=== PATIENT | male | born 1965 | race Two or more races ===

== ENCOUNTER 2025-01-30 02:18 | Inpatient (IN) | payer OTHER ==
[~2025-01-30] VITALS: Ht 165.1 cm; Wt 90.7 kg
[2025-01-30] MEDS ORDERED: NORVASC5 MG PO (02:26)
[2025-01-30] MEDS ORDERED: COZAAR25 MG PO (02:26)
[2025-01-30] MEDS ORDERED: PIPERACILLIN/TAZOBACTAM SODIUM 3.375 GM in DEXTROSE 5 % IN WATER 100 ML IV SCH (03:36)
[2025-01-30] MEDS ORDERED: 0.9 % SODIUM CHLORIDE 1,000 ML IV ONE (03:45)
[2025-01-30 04:32] LABS: INR 1.29
[2025-01-30 04:41] LABS: URINE APPEARANCE Cloudy; URINE BILIRRUBIN Moderate (NEGATIVE); URINE BLOOD Small; URINE COLOR Dark Yellow; URINE GLUCOSE Negative (NEGATIVE); URINE KETONE Trace (NEGATIVE); URINE LEUKOCYTE Trace; URINE NITRATE Negative; URINE PROTEIN 30 (NEGATIVE); URINE UROBILINOGEN 1.0 E.U./dl
[2025-01-30 04:44] LABS: URINE BACTERIA 181.1 uL (0.0-1933); URINE EPITHELIAL CELLS 12.7 uL (0.0-38.8); URINE RBC 265.8 uL (0.0-20.8); URINE WBC 4.7 uL (0.0-23.2)
[2025-01-30 04:47] LABS: BASO % 0.2 % (0.1-1.2); EOS # 0.01 (0.04-0.54); EOS % 0.1 % (0.7-7.0); LYMPH # 0.41 (1.18-3.74); LYMPH % 2.6 % (19.3-53.1); MEAN PLATELET VOLUME 11.20 fl (9.4-12.4); MONO # 0.86 (0.24-0.82); MONO % 5.4 % (4.7-12.5); NEUT # 14.53 (1.56-6.13); NEUT % 90.3 % (34.0-71.1); RED CELL DISTRIBUTION WIDTH 15.6 % (11.6-14.4)
[2025-01-30 04:50] LABS: BAND MAN 11.0 %; LYMPHOCYTE MAN 1.0 %; MONOCYTE MAN 7.0 %; NEUTROPHILS MAN 81.0 %
[2025-01-30 04:58] LABS: ALT/SGPT 318.0 U/L (12-78); AST/SGOT 460.0 U/L (15-37); BUN CREA RATIO 13.0 (7.0-25.0); CREATININE SERUM 2.35 mg/dL (0.70-1.30); GFR 28.34; GLOBULINA 2.3 G/DL (2.4-3.5); GLUCOSE FASTING 90.0 mg/dL (65-100); OSMOLALITY SERUM 278.0 MOSM/KG (275-295)
[2025-01-30 05:07] LABS: BILIRUBIN TOTAL 16.99 mg/dL (0.3-1.2); BILIRUBIN,CONJUGATED 10.7 mg/dL (0.0-0.2)
[2025-01-30 05:12] LABS: URINE CAST 0.14 uL (0.0-1.40)
[2025-01-30] MEDS ORDERED: LEVALBUTEROL HCL 0.63 MG/3 ML SOLUTION IH ONE (08:45)
[2025-01-30] MEDS ORDERED: MORPHINE SULFATE 2 MG/ML CARTRIDGE IV PRN (12:00)
[2025-01-30] MEDS ORDERED: 0.9 % SODIUM CHLORIDE 1,000 ML IV SCH (12:00)
[2025-01-30] MEDS ORDERED: ONDANSETRON HCL 4 MG in 0.9 % SODIUM CHLORIDE 50 ML IV PRN (12:00)
[2025-01-30] MEDS ORDERED: hydrALAZINE HCL 20 MG VIAL IV PRN (12:15)
[2025-01-30 12:23] VITALS: BP 103/56; O2SAT 96
[2025-01-30] MEDS ORDERED: PIPERACILLIN/TAZOBACTAM SODIUM 3.375 GM in 0.9 % SODIUM CHLORIDE 100 ML IV SCH (13:00)
[2025-01-30 13:11] LABS: INR 1.31
[2025-01-30 13:38] LABS: BILIRUBIN TOTAL 14.54 mg/dL (0.3-1.2); BILIRUBIN,CONJUGATED 8.64 mg/dL (0.0-0.2)
[2025-01-30] MEDS ORDERED: GLUCAGON 1 MG VIAL IV ONE (16:00)
[2025-01-30] MEDS ORDERED: IOVERSOL 320 MG/ML - 50 ML VIAL IV ONE (16:00)
[2025-01-30 19:54] VITALS: BP 98/58; O2SAT 95
[2025-01-31 01:15] VITALS: BP 93/57; O2SAT 94
[2025-01-31 06:50] LABS: BASO % 0.5 % (0.1-1.2); EOS # 0.04 (0.04-0.54); EOS % 0.3 % (0.7-7.0); LYMPH # 0.51 (1.18-3.74); LYMPH % 4.1 % (19.3-53.1); MEAN PLATELET VOLUME 11.60 fl (9.4-12.4); MONO # 0.78 (0.24-0.82); MONO % 6.3 % (4.7-12.5); NEUT # 10.92 (1.56-6.13); NEUT % 88.3 % (34.0-71.1); RED CELL DISTRIBUTION WIDTH 16.3 % (11.6-14.4)
[2025-01-31 07:21] LABS: ALT/SGPT 223.0 U/L (12-78); AST/SGOT 206.0 U/L (15-37); BILIRUBIN TOTAL 9.41 mg/dL (0.3-1.2); BUN CREA RATIO 25.0 (7.0-25.0); CREATININE SERUM 1.43 mg/dL (0.70-1.30); GFR 50.27; GLOBULINA 2.5 G/DL (2.4-3.5); GLUCOSE FASTING 81.0 mg/dL (65-100); OSMOLALITY SERUM 287.0 MOSM/KG (275-295)
[2025-01-31 08:00] VITALS: BP 127/72; O2SAT 95
[2025-01-31 17:23] VITALS: BP 95/61; O2SAT 97
[2025-02-01 01:45] VITALS: BP 117/72; O2SAT 96
[2025-02-01 08:00] VITALS: BP 117/75; O2SAT 98
[2025-02-01 14:10] LABS: BASO % 0.3 % (0.1-1.2); EOS # 0.15 (0.04-0.54); EOS % 1.7 % (0.7-7.0); LYMPH # 0.70 (1.18-3.74); LYMPH % 7.9 % (19.3-53.1); MEAN PLATELET VOLUME 11.00 fl (9.4-12.4); MONO # 0.69 (0.24-0.82); MONO % 7.8 % (4.7-12.5); NEUT # 7.15 (1.56-6.13); NEUT % 81.1 % (34.0-71.1); RED CELL DISTRIBUTION WIDTH 16.7 % (11.6-14.4)
[2025-02-01 16:00] VITALS: BP 128/74; O2SAT 97
[2025-02-01 21:23] LABS: BASO % 0.3 % (0.1-1.2); EOS # 0.16 (0.04-0.54); EOS % 1.8 % (0.7-7.0); LYMPH # 0.78 (1.18-3.74); LYMPH % 8.9 % (19.3-53.1); MEAN PLATELET VOLUME 10.60 fl (9.4-12.4); MONO # 0.97 (0.24-0.82); MONO % 11.1 % (4.7-12.5); NEUT # 6.70 (1.56-6.13); NEUT % 76.8 % (34.0-71.1); RED CELL DISTRIBUTION WIDTH 16.5 % (11.6-14.4)
[2025-02-02 01:43] VITALS: BP 132/73; O2SAT 97
[2025-02-02 08:00] VITALS: BP 152/84; O2SAT 97
[2025-02-02 11:52] LABS: ALT/SGPT 100.0 U/L (12-78); AST/SGOT 31.0 U/L (15-37); BILIRUBIN TOTAL 2.88 mg/dL (0.3-1.2); BUN CREA RATIO 14.0 (7.0-25.0); CREATININE SERUM 0.65 mg/dL (0.70-1.30); GFR 124.88; GLOBULINA 2.5 G/DL (2.4-3.5); GLUCOSE FASTING 120.0 mg/dL (65-100); OSMOLALITY SERUM 289.0 MOSM/KG (275-295)
[2025-02-02] MEDS ORDERED: POTASSIUM CHLORIDE IN WATER 40 MEQ/100 ML PIGGYBAG IV NR (13:00)
[2025-02-02 16:00] VITALS: BP 147/75; O2SAT 98
[2025-02-03 01:08] VITALS: BP 143/86; O2SAT 97
[2025-02-03 08:18] VITALS: BP 163/80; O2SAT 96
[2025-02-03] MEDS ORDERED: POTASSIUM CHLORIDE 10 MEQ CAPSULE PO STA (12:11)
[2025-02-03] MEDS ORDERED: MAGNESIUM SULFATE IN WATER 50 ML IV NR (13:00)
[2025-02-03 16:15] LABS: ALT/SGPT 73.0 U/L (12-78); AST/SGOT 22.0 U/L (15-37); BILIRUBIN TOTAL 2.8 mg/dL (0.3-1.2); BUN CREA RATIO 11.0 (7.0-25.0); CREATININE SERUM 0.72 mg/dL (0.70-1.30); GFR 110.98; GLOBULINA 2.9 G/DL (2.4-3.5); GLUCOSE FASTING 117.0 mg/dL (65-100); OSMOLALITY SERUM 281.0 MOSM/KG (275-295)
[2025-02-03 16:30] VITALS: BP 144/84; O2SAT 95
[2025-02-04 01:04] VITALS: BP 146/81; O2SAT 95
[2025-02-04 07:12] LABS: BUN CREA RATIO 11.0 (7.0-25.0); CREATININE SERUM 0.7 mg/dL (0.70-1.30); GFR 114.65; GLUCOSE FASTING 81.0 mg/dL (65-100); OSMOLALITY SERUM 280.0 MOSM/KG (275-295)
[2025-02-04 08:00] VITALS: BP 148/86; O2SAT 97
[2025-02-04 17:10] VITALS: BP 182/82; O2SAT 97
== END 2025-02-04 19:38 | disposition home or self-care (01) | DRG 444 ==
LOC: ER 02:18 → SEC-K 12:16 → O/R 12:16 → SURH 18:54
PROVIDERS: General Practice; Internal Medicine; Internal Medicine Nephrology; ADMIT Internal Medicine; ATTEND Internal Medicine
PROC: XFJB8A7 Inspection of Hepatobiliary Duct using Single-use Duodenoscope, New Technology Group 7 (ICD-10-PCS; 2025-01-30)
PROC: 0F798ZZ Dilation of Common Bile Duct, Via Natural or Artificial Opening Endoscopic (ICD-10-PCS; principal; 2025-01-30 14:00)
PROC: 30233R1 Transfusion of Nonautologous Platelets into Peripheral Vein, Percutaneous Approach (ICD-10-PCS; 2025-01-31)
DX: K80.30 Calculus of bile duct with cholangitis, unspecified, without obstruction (principal); J86.9 Pyothorax without fistula; N17.9 Acute kidney failure, unspecified; E87.6 Hypokalemia; I10 Essential (primary) hypertension; D69.6 Thrombocytopenia, unspecified; D69.1 Qualitative platelet defects